=== PATIENT | male | born 1970 | race Caucasian/White ===

== ENCOUNTER 2017-06-13 19:30 | Emergency (ER) | payer OTHER ==
[~2017-06-13] VITALS: Ht 172.7 cm; Wt 95.2 kg
--- NOTE | ~2017-06-13 | CR63 ---
[facility] A Service of [facility] & [facility] RADIOLOGY TEXT RESULTS PATIENT: LYNETTE HESTER JR LOCATION: [facility] : 70 UNIT #: [id number] AGE: [address]: Lino Bello MD SEX: M ORDER DR: [id number] [facility] [address] [place], [place] [address] [id number] E MR#: [id number] Acc #: [id number] NAME: LNYETTE HESTER JR : 1970 SEX: M STUDY DATE/TIME: 06/13/2017 20:32 UNIT: [facility] ROOM: STUDY DESCRIPTION: CR Chest 2 View Attending Physician: Lino Bello M.D. Ordering Physician: Lino Bello M.D. Primary Care Physician: Meghan Jane M.D. MEDICAL IMAGING REPORT This report is preliminary unless electronic signature is present EXAM 2-view chest HISTORY Congestion, tightness in lungs. History of asthma. History of pneumonia, fever onset yesterday. COMPARISON 01/02/2016 FINDINGS 2 views of the chest demonstrates focal airspace disease consolidation right upper lobe. Left lung and right lower lobe remain clear. No effusions. Heart, mediastinum unremarkable. Right shoulder arthroplasty. IMPRESSION Focal consolidation right upper lobe bordering the fissure. Findings most compatible with acute infectious pneumonia. Recommend clinical and radiographic follow up to resolution following appropriate treatment. No effusion. Dictated by... June Tolliver M.D. THIS IS AN ELECTRONICALLY VERIFIED REPORT June Tolliver M.D. at 06/14/2017 2:04 PM CHRIST/raj TD: 06/13/2017 23:16 JOB #: [id number] MEDICAL IMAGING REPORT Page 1 of 1 COPY
[~2017-06-13 19:30] MED LIST: ALBUTEROL0.83 MG/ML IH; ALBUTEROL17 G1 IH; AMOXICILLIN500 M1 PO; AZITHROMYCIN250 MG PO; BACTRIM DS TABL1 TA1 PO; BACTRIM DS TABL1 TA2 PO; BENZONATATE PO; HYDROCODONE BI473 M1 PO; KEFLEX500 MG PO; LEVAQUIN PO; LORTAB 5/500 TA1 TA1 PO; LORTAB 5/500 TA1 TA2; MEDROL DOSEPAK4 MG DOB; MUCINEX DM ER1 EACH PO; NEO SYNEPHRINE; ORUDIS75 M1 PO; PREDNISONE PO; PRILOSEC20 MG PO; ROBAXIN500 MG; VIBRAMYCIN100 M1 PO; VOLTAREN75 MG PO; ZITHROMAX PO
[2017-06-13 23:03] LABS: URINE SOURCE CLEAN CATCH
[2017-06-13 23:07] LABS: BASOPHIL% 0.4 % (0-2.5); DIFF IND NO; EOSINOPHIL# 0.1 X10e3 (0-0.7); EOSINOPHIL% 1.6 % (0.0-7.0); HEMATOCRIT 38.5 % (38.0-50.0); HEMOGLOBIN 13.1 gm/dL (13.0-16.0); LYMPHOCYTE# 0.9 X10e3 (1.0-3.5); LYMPHOCYTE% 12.5 % (17.0-45.0); MEAN CELL VOLUME 82.4 FL (83-96); MEAN PLATELET VOLUME 8.3 FL (6.5-11.5); MONOCYTE# 0.7 X10e3 (0-1.0); MONOCYTE% 10.3 % (3.0-12.0); NEUTROPHIL# 5.4 X10e3 (1.5-7.1); NEUTROPHIL% 75.2 % (40-75); PLATELET COUNT 209 X10e3 (140-420); RED BLOOD COUNT 4.67 X10e (3.90-5.60); RED CELL DISTRIBUTION WIDTH 13.4 % (11.0-15.5); WHITE BLOOD COUNT 7.1 X10e3 (4.0-10.5)
[2017-06-13 23:08] LABS: URINE APPEARANCE CLEAR; URINE BILIRUBIN NEG (NEG); URINE BLOOD NEG (NEG); URINE COLOR DK YELLOW; URINE GLUCOSE NEG (NEG); URINE KETONE TRACE (NEG); URINE LEUKOCYTE ESTERASE NEG (NEG); URINE NITRATE NEG (NEG); URINE PH 6.5 (5-8); URINE PROTEIN 1+ (NEG); URINE SPECIFIC GRAVITY 1.027 (1.003-1.035)
[2017-06-13 23:10] LABS: U HYALINE CASTS AUWI 0-2 /[LPF]; URINE BACTERIA AUWI NEG (NEGATIVE); URINE SQUAMOUS EPITHELIAL CELL NONE SEEN /[HPF]; UWBCS1 AUWI 0-2 (0-5)
[2017-06-13 23:19] LABS: CULTURE INDICATED? NO
[2017-06-13 23:26] LABS: BUN/CREATININE RATIO 8.46; CALCIUM SERUM 7.9 mg/dL (8.4-10.2); CREATININE SERUM 1.3 mg/dL (0.6-1.4); POTASSIUM 3.6 mmol/L (3.5-5.1)
== END 2017-06-14 00:08 | disposition home or self-care (01) ==
LOC: CED 19:30
PROVIDERS: Emergency Medicine
DX: J18.1 Lobar pneumonia, unspecified organism (principal); J45.909 Unspecified asthma, uncomplicated; K21.9 Gastro-esophageal reflux disease without esophagitis; Z88.0 Allergy status to penicillin
CPT/HCPCS: 36415; 71020; 80048; 81003; 83605; 85025; 87040; 96365; 96367; 99284; J0456; J0696